=== PATIENT | female | born 2005 | race Caucasian/White ===

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

== ENCOUNTER → 2024-10-30 | Outpatient (CLI) | payer OTHER, SELFPAY ==
--- NOTE | 2024-10-30 13:54 | CT_ITS ---
STUDY: CT SOFT TISSUE NECK WITH CONTRAST REASON FOR EXAM: Female, 19 years old. LEFT SUBMANDIBULAR MASS SINCE NOV, PAINFUL TO TOUCH AND TO SWALLOW RADIATION DOSAGE (If Supplied By Facility): CTDIvol = ( 9.04 ) mGy, DLP = ( 252.87 ) mGycm TECHNIQUE: The patient was scanned in a multi-detector CT scanner. High resolution transaxial imaging was performed following intravenous administration of IV 100mL Isovue-[id number]. Sagittal and coronal images were reconstructed. Individualized dose optimization techniques were used for this CT. COMPARISON: None. FINDINGS: Normal bilateral parotid glands. 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 Normal bilateral parapharyngeal spaces. Normal bilateral carotid spaces. The palpable abnormality corresponds to 1.5 cm x 1.5 x 2.4 cm heterogeneous enhancing mass in the left submandibular region. This may represent either an infected branchial cleft cyst versus necrotic lymph node. Biopsy recommended. Normal visualized nasopharynx. Normal retropharyngeal space. Normal perivertebral space. Normal visualized bilateral faucial tonsils. The visualized tongue, tongue base and oropharynx are normal. The visualized cervical lymph nodes (levels I-) are within normal size limits, and maintain normal morphology. There is no demonstrated solid or cystic mass lesion. There is no abnormal contrast enhancement. Normal epiglottis, bilateral vallecula and hypopharynx. The pre-epiglottic and paraglottic adipose spaces are normal. Normal visualized bilateral piriform sinuses, aryepiglottic folds, vocal cords, and arytenoid-cricoid articulations. Normal subglottic trachea. Normal bilateral lobes of the thyroid gland. Normal visualized pulmonary apices. Normal visualized paranasal sinuses. Normal visualized cervical spine. CT/Soft Tissue Neck WITH Contrast IMPRESSION: 1.5 cm x 1.5 cm x 2.4 cm heterogeneous enhancing mass in the left submandibular region corresponding to the palpable abnormality. This may represent either an infected branchial cleft cyst versus necrotic lymph node. Biopsy recommended. Electronically Signed: Matthew Rasmussen MD at 9:00 EST ,
== END | disposition home or self-care (01) ==
PROVIDERS: PCP Pediatrics; Referring Provider Otolaryngology Otolaryngology/Facial Plastic Surgery; Visit Provider Otolaryngology Otolaryngology/Facial Plastic Surgery
DX: K11.8 Other diseases of salivary glands (principal)
CPT/HCPCS: 70491; Q9967